=== PATIENT | female | born 1990 | race Caucasian/White ===

== ENCOUNTER 2017-02-05 22:10 | Inpatient (IN) | payer OTHER ==
[~2017-02-05] VITALS: Ht 157.5 cm; Wt 77.0 kg
[~2017-02-05 22:10] MED LIST: IBUP-1222 PO; PREN1TAB60 PO
[2017-02-05] MEDS ORDERED: LACTATED RINGERS 1,000 ML IV SCH ×2 (22:15→23:04)
[2017-02-05] MEDS ORDERED: D5%-LACTATED RINGERS 1,000 ML IV SCH (22:15)
[2017-02-05] MEDS ORDERED: OXYTOCIN 30U/ 0.9% NaCL 500ML 500 ML IV ONE (22:15)
[2017-02-05] MEDS: PLEASE ENTER HEIGHT AND WEIGHT MC SCH (22:30)
[2017-02-05] MEDS ORDERED: FENTANYL PF 100 MCG/2ML IVPush PRN (22:30)
[2017-02-05] MEDS ORDERED: SODIUM CITRATE/CITRIC ACID 30 ML UDC PO PRN (22:30)
[2017-02-05] MEDS ORDERED: METOCLOPRAMIDE 5 MG/ML, 2ML IVPush PRN (22:30)
[2017-02-05] MEDS ORDERED: CALCIUM CARBONATE 500 MG TAB.CHEW PO PRN (22:30)
[2017-02-05] MEDS ORDERED: FENTANYL PF 100 MCG/2ML IV PRN (22:30)
[2017-02-05] MEDS ORDERED: ONDANSETRON 2MG/ML, 2ML IVPush PRN (22:30)
[2017-02-05] MEDS ORDERED: NEWBORN KIT ONE (22:31)
[2017-02-05] MEDS ORDERED: FENTANYL PF 100 MCG/2ML ONE (22:31)
[2017-02-05] MEDS ORDERED: MISOPROSTOL 200 MCG TABLET ONE (22:31)
[2017-02-05] MEDS ORDERED: LIDOCAINE 1%, 20ML ONE (22:31)
[2017-02-05] MEDS ORDERED: OXYTOCIN 30U/ 0.9% NaCL 500ML 500 ML ONE (22:31)
[2017-02-05 22:46] LABS: HEMATOCRIT 38.7 % (34.6-47.8); HEMOGLOBIN 13.3 g/dL (11.7-16.4)
[2017-02-05] MEDS ORDERED: FENTANYL/BUPIV./NS/PF 250 ML EPIDCONT ONE ×2 (22:58→23:10)
[2017-02-05] MEDS ORDERED: FENTANYL/BUPIV./NS/PF 250 ML EPIDCONT SCH (23:04)
[2017-02-05 23:10] LABS: DIFF TOTAL CELLS COUNTED 100 CELL DIFF
[2017-02-05] MEDS ORDERED: BUPIVACAINE 0.25% ONE (23:10)
[2017-02-05] MEDS ORDERED: LIDOCAINE/PF 1.5%-EPI 1:200K, 30ML ONE (23:10)
[2017-02-05 23:12] LABS: VERIFY COUNTS? YES
[2017-02-05] MEDS ORDERED: LACTATED RINGERS 1,000 ML IVBOLUS PRN (23:30)
[2017-02-06] MEDS ORDERED: METHYLERGONOVINE 0.2 MG/ML IM PRN (01:30)
[2017-02-06] MEDS ORDERED: CALCIUM CARBONATE 500 MG TAB.CHEW PO PRN (01:30)
[2017-02-06] MEDS ORDERED: ACETAMINOPHEN 325 MG TABLET PO PRN (01:30)
[2017-02-06] MEDS: OXYTOCIN 30U/ 0.9% NaCL 500ML 500 ML IV SCH ×3 (01:30→21:30)
[2017-02-06] MEDS ORDERED: OXYcodone/APAP 5/325MG TABLET PO PRN (01:30)
[2017-02-06] MEDS ORDERED: ONDANSETRON 2MG/ML, 2ML IV PRN (01:30)
[2017-02-06] MEDS ORDERED: OXYTOCIN 30U/ 0.9% NaCL 500ML 500 ML ONE (02:23)
[2017-02-06 03:55] VITALS: BP 110/62
[2017-02-06] MEDS: PLEASE ENTER HEIGHT AND WEIGHT MC SCH ×2 (06:30→14:30)
[2017-02-06] MEDS: IBUPROFEN 600 MG TABLET PO PRN ×2 (06:42→14:23)
[2017-02-06 07:20] VITALS: BP 114/75
[2017-02-06] MEDS ORDERED: PRENATAL VIT/IRON/FA 1 EACH TABLET ONE (07:48)
[2017-02-06] MEDS: DOCUSATE 100 MG CAPSULE PO PRN ×2 (07:49→19:29)
[2017-02-06] MEDS: PRENATAL VIT/IRON/FA 1 EACH TABLET PO SCH (07:49)
[2017-02-06 09:54] LABS: HEMATOCRIT 33.9 % (34.6-47.8); HEMOGLOBIN 11.7 g/dL (11.7-16.4); WHITE BLOOD COUNT 11.6 x10^3/uL (3.4-10)
[2017-02-06 11:55] VITALS: BP 109/73
[2017-02-06] MEDS ORDERED: DIPH,PERTUSS(ACELL),TET VAC/PF NC IM-VACC ONE (12:00)
[2017-02-06] MEDS: OXYcodone/APAP 5/325MG TABLET PO PRN (15:35)
[2017-02-06 15:45] VITALS: BP 110/70
[2017-02-06 19:30] VITALS: BP 120/85
[2017-02-07] MEDS: IBUPROFEN 600 MG TABLET PO PRN (05:27)
[2017-02-07] MEDS: OXYcodone/APAP 5/325MG TABLET PO PRN (08:32)
[2017-02-07] MEDS: DOCUSATE 100 MG CAPSULE PO PRN (08:32)
[2017-02-07] MEDS: PRENATAL VIT/IRON/FA 1 EACH TABLET PO SCH (08:32)
[2017-02-07 08:33] VITALS: BP 105/67
[2017-02-07] MEDS ORDERED: OXYC-302 PO (09:26)
== END 2017-02-07 10:42 | disposition home or self-care (01) | DRG 775 ==
LOC: LDOP 22:10 → LDIP 22:20 → 2NW 02-06 03:34
PROVIDERS: ADMIT Obstetrics & Gynecology; ATTEND Obstetrics & Gynecology
PROC: 10E0XZZ Delivery of Products of Conception, External Approach (ICD-10-PCS; principal; 2017-02-06)
PROC: 10907ZC Drainage of Amniotic Fluid, Therapeutic from Products of Conception, Via Natural or Artificial Opening (ICD-10-PCS; 2017-02-06)
PROC: 3E0R3BZ Introduction of Anesthetic Agent into Spinal Canal, Percutaneous Approach (ICD-10-PCS; 2017-02-06)
PROC: 00HU33Z Insertion of Infusion Device into Spinal Canal, Percutaneous Approach (ICD-10-PCS; 2017-02-06)
DX: O80 Encounter for full-term uncomplicated delivery (principal); Z37.0 Single live birth; Z3A.38 38 weeks gestation of pregnancy
CPT/HCPCS: 36415; 85025; 86850; 86900; 90715; J3010; J3490; J7120